=== PATIENT | male | born 1995 | race Caucasian/White ===

== ENCOUNTER 2022-09-19 04:31 | Emergency (ER) | payer SELFPAY ==
[~2022-09-19] VITALS: Ht 177.8 cm; Wt 86.2 kg
[2022-09-19 04:33] VITALS: BP 137/71
--- NOTE | 2022-09-19 04:34 | NUR ---
PT MANUEL VAUGHN. TAKEN TO CHAIR
--- NOTE | 2022-09-19 04:50 | NUR ---
Patient being evaluated by physician at bedside.
[2022-09-19 04:52] VITALS: BP 137/71
--- NOTE | 2022-09-19 04:52 | NUR ---
Patient discharged with v/s stable. Written and verbal after care instructions given and explained. Patient verbalized understanding. Ambulatory with steady gait. All questions addressed prior to discharge. Advised to follow up with PMD.
== END 2022-09-19 04:52 ==
LOC: MED 04:31
CPT/HCPCS: 99283